=== PATIENT | female | born 1980 | race African-American/Black ===

== ENCOUNTER 2016-10-18 16:58 | Inpatient (IN) | payer OTHER, SELFPAY ==
[~2016-10-18] VITALS: Ht 167.6 cm; Wt 83.0 kg
[2016-10-18] VITALS (25 sets, daily range): BP systolic 87–127; BP diastolic 53–91
[2016-10-18] MEDS ORDERED: PRENTAB9 PO (17:23)
[2016-10-18] MEDS ORDERED: LACTATED RINGER'S 1000 ML IV STA (20:21)
[2016-10-18] MEDS ORDERED: AMPICILLIN SOD 2 GM in D5W MINI-BAG PLUS 100 ML IV STA (20:21)
[2016-10-18] MEDS ORDERED: LR 1,000 ML IV SCH (20:21)
--- NOTE | 2016-10-18 20:44 | HPEPDOC ---
Obstetrical History & Physical General Date of Admission Oct 18, 2016 at 20:19 History of Present Illness Chichi is a 36yo with SIUP at 39w4d by lmp c/w 8wk u/s presenting this evening with painful consistent contractions. She was seen last night for labor check and only 1-2cm. She states her ctx are becoming more painful over the day and closer together. No LOF, some scant vaginal bleeding, feels movement. course only complicated by AMA (age 36), declined genetic screening. Surgical hx significant for umbilical hernia repair with mesh. Chief Complaint: Contractions, term Information Provided By: Patient Care Care: Good Care Dating Final EDC: Oct 21, 2016 Final EDC by: LMP, 1st trimester (US) LMP: Jan 15, 2016 Antepartum Course Diagnos(e)s AMA, declined genetic screening Height (inches): 65 Pre- weight (lbs.): 169 Admission Weight (lbs.): 188 Change in Weight (lbs.): 19 Past Medical History Past Obstetrical History #1: Past Obstetrical History: Multigravida Date of Delivery: Mar 28, 2004 Gestation: 40 Type of Delivery: Spontaneous Vaginal Del. Sex of Infant: Male Complications: No Past Obstetrical History #2: Past Obstetrical History: Multigravida Date of Delivery: Sep 25, 2008 Gestation: 40 Type of Delivery: Spontaneous Vaginal Del. Sex of Infant: Female [employer] History: No pertinent history Past Medical History Medical History benign Surgical History: Hernia repair (umbilical, with mesh, 2013) Family History Significant Family History: No pertinent family hx Social History Marital Status: Family situation: Spouse/partner home Psychosocial History: No pertinent psych hx * Smoker: non-smoker Alcohol: Denies Drugs: denies Imunizations Tdap status: declined Influenza Status: current Allergies Coded Allergies: Acetaminophen (Verified Adverse Reaction, Mild, NAUSEA/VOMITING/HEADACHE, 10/18/16) Oxycodone (Verified Adverse Reaction, Mild, NAUSEA/VOMITING/HEADACHE, 10/18) Medications Scheduled Multivitamins/ ( 27-0.8 mg) 1 Tab Tab 1 TAB PO DAILY Physical Examination Physical Examination GENERAL: Alert and oriented times three. BREAST: . ABDOMEN: Gravid and non-tender to touch. FETUS: Is vertex (VTX) by sterile vaginal examination (SVE) HEART RATE: Regular rate and rhythm. LUNGS: Clear to auscultation (CTA). EXTREMITIES: trace edema of BLE Vital Signs/I&O Vital Signs Date Time Temp Pulse Resp B/P Pulse Ox O2 Delivery O2 Flow Rate FiO2 10/18/16 17:22 98.3 16 10/18/16 17:18 74 127/67 Pertinent Laboratoy Data Blood Type: O+ RBC Antibody Screen: Negative HIV: Negative Hepatitis B: Negative Hepatitis C: Unknown Rapid Plasma Reagin: Nonreactive Rubella: Immune Varicella: Immune Chlamydia/Gonorrhea: Negative Group B Streptococcus: Positive Glucose Tolerance Test: 63 Anatomy Ultrasound Ultrasound Date: Jun 14, 2016 Placenta Location: Posterior Normal Anatomy: Yes Placenta Previa: No Steroid Therapy Steroid Therapy: No Vaginal Examination Dilation: 5 cm Effacement: 60-70% Station: -2 Cervical Consistency: Soft Cervical Position: Middle Presentation: Cephalic presentation Assessment Heart Rate (FHR): 140 Variability: Moderate Accelerations: Positive Decelerations: None Tocometer Contractions: Yes Frequency: every 3-7 min. Duration: greater than 60 seconds Strength: palpated as moderate Assessment/Plan Assessment Chichi is a 36yo with SIUP at 39w4d by lmp c/w 8wk u/s in active labor. Observed for 2hr on L&D and made cervical change from 4/50/-2 to 5/75/-2 with increasingly more regular, painful ctx. Cephalic by SCE. Cat I FHRT. GBS positive (urine). Proven to 7lb. course only complicated by AMA (age 36), declined genetic screening. Surgical hx significant for umbilical hernia repair with mesh. Plan Admit and orient. Child Life Specialist and consent. Diet: clear liquids Group B Streptococcus (GBS) positive: ampicillin 2/1 Labs and intravenous (IV) per unit protocol. Lactated Ringers (LR): Bolus 1000 mL, then at 125 mL/hr. Anticipate normal spontaneous delivery () Dr. Dominique Davidson MD [place]DOMINI[place] Talavera MD Oct 18, 2016 20:44
[2016-10-18] MEDS ORDERED: FENTANYL 2MCG/ML ROPIVACAINE 0.2% NACL 250 ML CADD As Ordered ONE (21:49)
[2016-10-18 21:51] LABS: MEAN CORPUSCULAR HEMOGLOBIN 30.9 pg (27.0-33.0); MEAN CORPUSCULAR HGB CONC 34.3 g/dl (32.0-36.5); MEAN CORPUSCULAR VOLUME 90.1 fl (80.0-96.0); RED CELL DISTRIBUTION WIDTH 11.9 % (11.5-14.5); WHITE BLOOD COUNT 8.8 K/mm3 (4.0-10.0)
[2016-10-18] MEDS ORDERED: LACTATED RINGER'S 1000 ML IV PRN (22:16)
[2016-10-18] MEDS ORDERED: EPIDURAL COMMENT XX SCH (22:16)
[2016-10-18] MEDS ORDERED: diphenhydrAMINE INJ 50MG/ML VIAL (J1200) IV PRN (22:16)
[2016-10-18] MEDS ORDERED: ONDANSETRON 4MG/2ML VIAL (J2405) IV PRN (22:16)
[2016-10-18] MEDS ORDERED: REFRIGERATOR IV KEYS XX PRN (22:16)
[2016-10-18] MEDS ORDERED: FENTANYL/ROPIVACAINE/NACL CADD 250 ML EPIDURAL SCH (22:16)
[2016-10-18] MEDS ORDERED: EPIDURAL/PCA KEYS XX PRN (22:16)
[2016-10-18] MEDS ORDERED: ePHEDrine SULFATE 25 MG/5 ML(5MG/ML) SYRINGE IV PRN (22:16)
[2016-10-18] MEDS ORDERED: NALOXONE INJ 0.4 MG/1 ML VIAL (J2310) IV PRN (22:16)
[2016-10-18] MEDS ORDERED: ePHEDrine SULFATE 25 MG/5 ML(5MG/ML) SYRINGE As Ordered ONE (23:33)
[2016-10-19] VITALS (17 sets, daily range): BP systolic 99–138; BP diastolic 50–89
[2016-10-19] MEDS ORDERED: OXYTOCIN DRIP 30 UNITS in APPROPRIATE DILUENT 1 EA IV SCH ×2
[2016-10-19] MEDS ORDERED: AMPICILLIN SOD 1 GM in D5W MINI-BAG PLUS 50 ML IV SCH (01:00)
--- NOTE | 2016-10-19 02:01 | DNPDOC ---
Delivery Note Delivery Note DATE OF DELIVERY: Oct 19, 2016 at 0138 PREDELIVERY DIAGNOSIS: 39w4d gestation and labor. POST DELIVERY DIAGNOSIS: Delivered. PROCEDURE: Spontaneous vaginal delivery MATE CHIEF: Dr. Dominique Davidson MD ANESTHESIA: epidural. ESTIMATED BLOOD LOSS: 150 mL. FINDINGS: 6 pound 11 ounce male infant, Score 9/10 DELIVERY SUMMARY: Chichi is a 36yo G4 now P3013 who was admitted to L&D for active labor. She had an uncomplicated of a viable male at 0138 on 19 October 2016 at 39w4d. Head delivered OA, restituted ZEENAT. No nuchal cord. Right anterior shoulder delivered followed by posterior shoulder and corpus. Cord clamped x2 and cut by this provider. Infant mouth/nares bulb suctioned. Spontaneous cry noted. Baby placed on mother's abdomen. Apgars 9/10, weight 3024g. Cord blood obtained due to maternal blood type of O pos. With gentle downward guidance and suprapubic pressure, placenta delivered spontaneously and intact with a centrally inserted cord. Fundal massage until both uterine fundus and lower uterine segment firm; fundus at U-2cm. Pitocin 30 units IV bolus administered. Inspection of perineum and vaginal wall revealed right superficial labial abrasion re- approximated with one figure of 8 using 4.0 vicryl suture with good hemostasis. Mom and infant in stable condition. Dr. Dominique Davidson MD [place] T[place] MD Oct 19, 2016 02:01
[2016-10-19] MEDS ORDERED: ACETAMINOPHEN 500 MG TAB PO PRN (02:15)
[2016-10-19] MEDS ORDERED: RHOGAM 300 MCG (1500 IU) INJ (J2790) IM SCH (02:15)
[2016-10-19] MEDS ORDERED: MEASLES,MUMPS,RUBELLA VACCINE INJ (MMR-II) (90707) SC SCH (02:15)
[2016-10-19] MEDS: IBUPROFEN 800 MG TAB PO PRN ×2 (07:34→14:47)
[2016-10-19] MEDS: DOCUSATE SODIUM 100 MG CAP PO SCH ×2 (07:34→20:15)
[2016-10-19] MEDS: PRENATAL VITAMIN TAB PO SCH (07:34)
--- NOTE | 2016-10-19 09:05 | IPNPDOC ---
Text Note Date of Service The patient was seen on 10/19/16. NOTE PPD 0 Chichi is a 36yo doing well on PPD 0 s/p uncomplicated . She is . Lochia normal, spontaneously voiding and ambulating without difficulty. Tolerating regular diet. Denies f/c/n/v/SOB/CP/CAMPBELL/abdominal pain. Vitals wnl, afebrile Exam: General: WDWN, NAD, resting comfortably Cardiac: S1S2 present, no murmur Lungs: CTAB without wheeze/crackles Abdomen: soft, NTTP, fundus firm u-1cm Extremities: no tenderness of calves bilaterally Assessment: Chichi is a 36yo doing well on PPD 0 s/p uncomplicated . Meeting all milestones. No e/o infection, hemodynamically stable. Plan: -routine post- care -tylenol/motrin prn pain -regular diet -encourage , hydration, ambulation -undecided on contraception, considering Mirena IUD -likely discharge home tomorrow Dr. Dominique Davidson MD [place] RODRÍGUEZ VSSera, I+O VSSera I+O Laboratory Tests 10/18/16 21:25 Red Blood Count 4.31, Mean Corpuscular Volume 90.1, Mean Corpuscular Hemoglobin 30.9, Mean Corpuscular Hemoglobin Concent 34.3, Red Cell Distribution Width 11.9 Vital Signs Date Time Temp Pulse Resp B/P Pulse Ox O2 Delivery O2 Flow Rate FiO2 10/19/16 04:00 98.1 75 18 119/73 I&O- Last 24 Hours up to 6 AM 10/19/16 06:00 Output Total 150 ml Balance -150 ml DOMINIQUE DAVIDSON MD Oct 19, 2016 09:05
[2016-10-20] MEDS: IBUPROFEN 800 MG TAB PO PRN (00:53)
[2016-10-20 05:34] VITALS: BP 129/72
--- NOTE | 2016-10-20 07:25 | DSES ---
DATE OF ADMISSION: 10/18/2016 DATE OF DISCHARGE: This lady is a 3, now para 3, admitted in spontaneous labor and had a spontaneous vaginal delivery of a live male , 6 pounds 11 ounces, 3024 grams, Apgars of nine and ten at 1 and 5 minutes respectively. She had a right labial laceration and no other issues were involved. We discussed phlebitis, cystitis, mastitis, endometritis, cellulitis, diet, exercise, pain management, perineal breast and wound care. She is planning on a 6-week visit at which time she would like to have either an intrauterine device (IUD) or a Nexplanon. It will be discussed with her provider at that time. On discharge, her blood pressure is 129/72, respirations 18, pulse 86 and temperature 97.8. Her hemoglobin was 13.3, hematocrit 38.8 and platelets 310. The rest of the physical examination was unremarkable. She was normocephalic, atraumatic. Neck with full range of motion. Pupils equal and reactive to light. Chest is clear bilaterally at bases. No wheezes or rhonchi. Distal pulses symmetric. No evidence of deep vein thrombosis (DVT), pulmonary embolism (PE) or superficial phlebitis. Uterus is two below. Lochia is moderate. Four quadrant bowel sounds. The perineum is healing. No rashes, lesions or pruritus. No arthralgia or myalgia. No complaints of cough, wheezes, shortness of breath or dyspnea on exertion. No chest pain. No bleeding. Neurologic complete. No incontinence, urgency or frequency. No nausea, vomiting, diarrhea or constipation. No diabetic issues. She does not smoke or drink. Does not abuse drugs. She is and there is no domestic violence. In summary, we have a 3, who had a spontaneous uncomplicated vaginal delivery, to be discharged, to followup in six weeks' time.
[2016-10-20] MEDS ORDERED: COLA100C PO (08:05)
[2016-10-20] MEDS ORDERED: IBUP-1114 PO (08:05)
[2016-10-20] MEDS ORDERED: ACET50TA PO (08:05)
[2016-10-20] MEDS: DOCUSATE SODIUM 100 MG CAP PO SCH (08:32)
[2016-10-20] MEDS: PRENATAL VITAMIN TAB PO SCH (08:32)
== END 2016-10-20 11:00 | disposition home or self-care (01) | DRG 775 ==
LOC: M LDO 16:58 → M LDI 20:19 → M OBS 10-19 04:10
PROVIDERS: ADMIT Obstetrics & Gynecology; ATTEND Obstetrics & Gynecology
PROC: 10E0XZZ Delivery of Products of Conception, External Approach (ICD-10-PCS; principal; 2016-10-19)
PROC: 0HQ9XZZ Repair Perineum Skin, External Approach (ICD-10-PCS; 2016-10-19)
DX: O99.824 Streptococcus B carrier state complicating childbirth (principal); Z37.0 Single live birth; Z3A.39 39 weeks gestation of pregnancy; Z88.6 Allergy status to analgesic agent; Z88.5 Allergy status to narcotic agent; Z79.899 Other long term (current) drug therapy; O70.0 First degree perineal laceration during delivery

== ENCOUNTER 2018-10-20 19:52 | Inpatient (IN) | payer OTHER ==
[2018-10-20] VITALS (7 sets, daily range): BP systolic 118–143; BP diastolic 60–88
[~2018-10-20] VITALS: Ht 167.6 cm; Wt 82.9 kg
[~2018-10-20 19:52] MED LIST: COLA100C5 PO; IBUP-1114 PO; MAPA500T2 PO; PRENTAB9 PO
[2018-10-20] MEDS ORDERED: LR 1,000 ML IV SCH (20:25)
[2018-10-20] MEDS ORDERED: PENICILLIN G POTASSIUM IV 5 MU in D5W MINI-BAG PLUS 100 ML IV STA (20:25)
[2018-10-20] MEDS ORDERED: LACTATED RINGER'S 1000 ML IV ONE (20:30)
[2018-10-20] MEDS ORDERED: FENTANYL 2MCG/ML ROPIVACAINE 0.2% IN 0.9% NACL 100ML IVBAG As Ordered ONE (21:04)
[2018-10-20 21:10] LABS: HEMATOCRIT 36.6 % (36.0-47.0); HEMOGLOBIN 12.6 g/dl (12.0-15.5); MEAN CORPUSCULAR HGB CONC 34.4 g/dl (32.0-36.5); MEAN CORPUSCULAR VOLUME 90.1 fl (80.0-96.0); PLATELET COUNT, AUTOMATED 303 10^3/uL (150-450); RED BLOOD COUNT 4.06 10^6/uL (4.00-5.40); WHITE BLOOD COUNT 7.3 10^3/uL (4.0-10.0)
[2018-10-20] MEDS ORDERED: OXYTOCIN 30 UNITS IN 0.9% NaCl 500ML IV BAG (J2590) As Ordered ONE (21:28)
[2018-10-20] MEDS ORDERED: OXYTOCIN DRIP 30 UNITS in APPROPRIATE DILUENT 1 EA IV SCH (21:47)
[2018-10-20] MEDS: IBUPROFEN 800 MG TAB PO PRN (21:57)
[2018-10-20] MEDS ORDERED: RHOGAM 300 MCG (1500 IU) INJ (J2790) IM SCH (22:00)
[2018-10-20] MEDS ORDERED: METHYLERGONOVINE MALEATE 0.2 MG TAB PO PRN (22:00)
[2018-10-20] MEDS ORDERED: ANUSOL HC CREAM 30GM TOP PRN (22:00)
[2018-10-20] MEDS ORDERED: OXYTOCIN INJ 10 UNITS/ML VIAL (J2590) IV ONE (22:00)
[2018-10-20] MEDS ORDERED: MEASLES,MUMPS,RUBELLA VACCINE INJ (MMR-II) (90707) SC SCH (22:00)
[2018-10-20] MEDS ORDERED: DIBUCAINE 1% OINTMENT 30GM TOP PRN (22:00)
[2018-10-20] MEDS ORDERED: DOCUSATE SODIUM 100 MG CAP PO PRN (22:00)
[2018-10-20 22:13] LABS: CORD GAS ABE A 0.1; CORD GAS O2 SAT A 20.8 %; CORD GAS PCO2 A 46.5 mmHg; CORD GAS PH A 7.365 UNITS; CORD GAS PO2 A 13.3 mmHg; CORD GAS SBC A 22.7 MEQ/L; CORD GAS TCO2 A 27.4 MEQ/L
[2018-10-20 22:14] LABS: CORD GAS ABE V 0.7; CORD GAS O2 SAT V 78.3 %; CORD GAS PCO2 V 30.9 mmHg; CORD GAS PH V 7.49 UNITS; CORD GAS PO2 V 32.4 mmHg; CORD GAS SBC V 24.6 MEQ/L
[2018-10-20] MEDS ORDERED: BIOT10009 PO (23:26)
[2018-10-21] MEDS: ACETAMINOPHEN 500 MG TAB PO PRN ×3 (00:40→20:28)
[2018-10-21 00:51] VITALS: BP 108/60
[2018-10-21] MEDS ORDERED: PENICILLIN G POTASSIUM IV 2.5 MU in APPROPRIATE DILUENT 1 EA IV SCH (01:00)
[2018-10-21 06:06] VITALS: BP 104/51
[2018-10-21] MEDS: IBUPROFEN 800 MG TAB PO PRN ×2 (06:54→16:29)
[2018-10-21 07:31] LABS: HEMATOCRIT 37.7 % (36.0-47.0); HEMOGLOBIN 12.6 g/dl (12.0-15.5); MEAN CORPUSCULAR HEMOGLOBIN 30.4 pg (27.0-33.0); MEAN CORPUSCULAR HGB CONC 33.4 g/dl (32.0-36.5); MEAN CORPUSCULAR VOLUME 91.1 fl (80.0-96.0); PLATELET COUNT, AUTOMATED 316 10^3/uL (150-450); RED BLOOD COUNT 4.14 10^6/uL (4.00-5.40); WHITE BLOOD COUNT 10.9 10^3/uL (4.0-10.0)
--- NOTE | 2018-10-21 08:57 | HPE ---
DATE OF ADMISSION: 10/20/2018 38-year-old 5, para 3, aborta 1, last menstrual period (LMP) of 01/15/2018, estimated date of confinement (EDC) 10/22/2018, at 39 and 5 of gestation, active labor, 5 cm, posterior, 100% effaced, -3 station, intact. Group B Streptococcus (GBS) positive. PAST HISTORY: 2003 at 40 weeks spontaneous delivery of a male 7 pounds, epidural. 2006 spontaneous . 2008 term spontaneous vaginal delivery female, 6 pounds. 2016 at 40 weeks male, 6 pounds, epidural. Risk factor is she is AMA, 38 years old, GBS positive, has a hernia. LABORATORY DATA: O positive. HIV negative. Hep negative. RPR negative. Rubella immune. Varicella immune. Pap normal. Urine negative. Gonorrhea and chlamydia negative. 1 hour glucose 78. GBS positive. EXAMINATION: She is distressed. Symphysis fundus height is 40, vertex, four quadrant bowel sounds, OP position, posterior 5 cm, 100% effaced, -3 station. No vaginal bleeding or discharge. Blood pressure 110/67, respirations 18, pulse 99, temperature 96.8. The rest of the examination is unremarkable. She is normocephalic, atraumatic. Neck full range of motion. Pupils equal and reactive to light. Distal pulses symmetric. No evidence of deep vein thrombosis (DVT), pulmonary embolism (PE), or superficial phlebitis. No wheezes or rhonchi. No CVA tenderness. Abdomen: Soft. Four quadrant bowel sounds, appropriate symphysis fundus height. She has no rashes, lesions or pruritus. She has a lot of tattoos. No arthralgia or myalgia. No complaint joint pain. No complaint cough, wheeze, shortness of breath or dyspnea on exertion. No infection. No bleeding. Neuro complete. No incontinency, urgency or frequency. No nausea, vomiting, diarrhea or constipation. No diabetic issues. She has no CLAIMS ATTORNEY history. PAST MEDICAL AND SURGICAL HISTORY: Unremarkable. FAMILY HISTORY: Noncontributory. She does not smoke, drink or abuse drugs. She is to a soldier. No domestic violence. Good support system. We discussed the patient's pain management. She is requesting an epidural. We also explained that GBS positive requires 4 hours of antibiotics predelivery in order for the baby to be not admitted to the intensive-care unit (NICU) for observation. Consent for vaginal delivery is obtained, that is delivery through the vagina, possible assistance of forceps or vacuum devices if needed for maternal and indications. Forceps or vacuum devices assist with vaginal delivery when normal pushing efforts cannot achieve delivery on their own or when delivery is needed in an emergency for baby's well-being. Medications may be required to induce or augment labor to help in order to achieve a vaginal delivery. Episiotomy may be required to help the baby deliver vaginally. You may also require repair of lacerations, tears of her vagina, vulva caused by delivery, in some cases emergencies can occur, requiring emergency section, delivery so quickly there may not be time for formalized consent form, but the provider will discuss the reasons, understand it occurs only if the baby is safer delivered abdominally than vaginally, and in some situations section may be more appropriate route of delivery. Remote reactions to anesthesia, remote rupture, remote hysterectomy for life-threatening issues. Blood transfusions. Possibility of hemorrhage of rapid delivery. The risks to use of forceps or vacuum, there is hematoma, scratches to baby head, intracranial bleed, trauma to urinary tract or bowel. The patient expressed understanding, still requesting her epidural, ongoing process, hydration, epidural and monitor baby for anticipated vaginal delivery.
[2018-10-21] MEDS ORDERED: ADACEL/BOOSTRIX VACCINE (DIPHTH/PERTUSS/ACELL/TETANUS)0.5ML SYR (90715) IM ONE (09:00)
[2018-10-21] MEDS: PRENATAL VITAMINS CHEWABLE TABLET PO SCH (09:56)
--- NOTE | 2018-10-21 14:02 | DN ---
DATE OF DELIVERY: 10/20/2018 DELIVERY NOTE: 38-year-old, 5, para 3, admitted in active labor, 5 cm dilated, GBS positive. She has a spontaneous rupture of membranes of clear liquid, had involuntary pushing, spontaneously and precipitously delivered a live male infant weighing 3050 grams or 6 pounds 12 ounces. Apgars 9 and 9 at one and five minutes respectively. There was a cord around the neck times one which was tight. The placenta delivered spontaneously thereafter. Three-vessel cord, membranes and tissues intact. She had a small first-degree tear which oversewn in the usual fashion with a J3350 on [address] CT needle. Sphincter was intact. Lateral, anterior and posterior brennan were intact. Uterus contracted well down on Pitocin. The patient and baby tolerated the procedure well.
[2018-10-21 18:00] VITALS: BP 109/54
[2018-10-22] MEDS: IBUPROFEN 800 MG TAB PO PRN ×2 (00:39→18:28)
[2018-10-22] MEDS ORDERED: ISOVUE-370 76% 125ML VIAL (Q9967 PER ML) As Ordered ONE (01:32)
[2018-10-22 02:17] LABS: ALBUMIN 2.7 GM/DL (3.2-5.2); ALT/SGPT 20 U/L (12-78); BILIRUBIN,TOTAL 0.2 MG/DL (0.2-1.0); BLOOD UREA NITROGEN 15 MG/DL (7-18); CALCIUM LEVEL 8.5 MG/DL (8.5-10.1); CARBON DIOXIDE LEVEL 25 MEQ/L (21-32); CHLORIDE LEVEL 107 MEQ/L (98-107); CREATININE FOR GFR 1.17 MG/DL (0.55-1.30); GLOMERULAR FILTRATION RATE > 60.0 (>60); GLUCOSE, FASTING 85 MG/DL (70-100); POTASSIUM SERUM 4.1 MEQ/L (3.5-5.1); SODIUM LEVEL 140 MEQ/L (136-145); TOTAL PROTEIN 6.6 GM/DL (6.4-8.2)
--- NOTE | 2018-10-22 04:29 | REPVR ---
EXAM: CT Abdomen and Pelvis With Contrast EXAM DATE/TIME: 10/22/2018 1:20 AM CLINICAL HISTORY: 38 years old, female; Pain; Abdominal pain; Generalized; Additional info: 38yo f ppd2 S/P , HX of abd hernia, severe pain TECHNIQUE: Imaging protocol: Axial computed tomography images of the abdomen and pelvis with intravenous contrast. Coronal and sagittal reformatted images were created and reviewed. Radiation optimization: All CT scans at this facility use at least one of these dose optimization techniques: automated exposure control; mA and/or kV adjustment per patient size (includes targeted exams where dose is matched to clinical indication); or iterative reconstruction. Contrast material: iso Contrast volume: 100 ml Contrast route: ac COMPARISON: No relevant prior studies available. FINDINGS: Lower thorax: There is minimal bibasilar atelectasis. ABDOMEN: Liver: There are no focal liver lesions present. Gallbladder and bile ducts: The gallbladder is normal with no stones or biliary ductal dilation. Pancreas: The pancreas is normal with no ductal dilation. Spleen: The spleen is normal. Adrenals: The adrenal glands are normal. Kidneys and ureters: There is a 3 mm calcification in the right kidney midpole which may be a nonobstructing stone or small parenchymal calcification. The kidneys appear heterogeneous but this is probably related to the relatively early phase of the contrast. There is no hydronephrosis. The nondilated distal ureters are difficult to trace, but no stones are seen along their expected course. Stomach and bowel: There is mild gaseous distention of the colon but there is no sign of obstruction.The small bowel appears unremarkable. Appendix: A normal appendix is identified. PELVIS: Bladder: The bladder is unremarkable. No stones identified. Reproductive: Uterus is large measuring 21.2 x 11.4 x 14.2 cm. There is low attenuation centrally measuring 1.6 cm in thickness, consistent with fluid in the endometrial canal. ABDOMEN and PELVIS: Intraperitoneal space: There is only a trace of free fluid in the pelvis. There is no free intraperitoneal air. Bones/joints: No suspicious osseous lesions. No acute fractures or dislocations. Soft tissues: There is laxity of anterior abdominal wall but no true hernia is identified. Vasculature: Normal. No abdominal aortic aneurysm. Lymph nodes: Normal. No enlarged lymph nodes. IMPRESSION: 1. The uterus is enlarged to 21 x 11 x 14 cm, related to the state, with low-attenuation centrally, consistent with fluid in the endometrial canal. No definite hematoma identified. If there is clinical concern for retained products of conception or endometritis, sonographic evaluation may be helpful. 2. Heterogeneous appearance of the kidneys, probably related to the phase of the IV contrast, but correlate clinically for any signs of pyelonephritis. No hydronephrosis. Electronically signed by: Nellie Barbosa On 10/22/2018 04:29:13 AM
[2018-10-22 06:00] VITALS: BP 131/67
[2018-10-22] MEDS: MIRALAX *UNIT DOSE* 17GM PACKET PO SCH (06:41)
--- NOTE | 2018-10-22 08:30 | IPNPDOC ---
Progress Note Date of Service: Oct 22, 2018 Day#: 1 Progress Note PPD 1 SUBJECT: Chichi is a 38yo [id number] s/p uncomplicated at 39w5d on 10/21/18, overall doing well day # 1. Significantly, in the middle of the night I was called by the RN for patient stating she has a known abdominal hernia that she will be getting surgery for eventually (previously evaluated by gen surg), and normally "she can reduce a bulge, but right now she has severe pain and cannot reduce a bulge". I was told the patient was in immense amount of pain and needed immediate evaluation. I went to see Chichi and performed abdominal exam- I could not feel a fascial defect, but the patient had immense guarding and was tearful with my touch. She pointed to the focus of pain being in the RLQ, though she stated the prior noted hernia was next to her umbilicus- though she previously had an umbilical hernia that was repaired with mesh. The story was confusing, especially with the patient's location of pain- but given that exam brought her to tears in the midst of her stated history- I made the decision to have her sent for stat CT abd/pelvis which resulted "laxity in the abdominal wall but NO evidence of any hernia." When I went to inform the patient of the CT result, she noted her pain had improved. Only other finding on the CT was a 3mm right kidney stone, but this would not have caused the pain she was describing (especially with abd tenderness on exam). I explained all of this to the patient and provided her with a copy of the report that she can take to her general surgeon when she discusses hernia repair in the future. My best explanation for her pain was that it may be related to gas. She has been ambulating, voiding spontaneously without issue and tolerating regular diet. Breast and bottle feeding without issue. Reports lochia is like a normal period. No f/c/n/v/CP/SOB. OBJECTIVE: VITAL SIGNS: Within normal limits, afebrile. Alert and oriented times three. Abdomen: Fundus firm at U-2. Soft, no rebound, some guarding with tenderness in RLQ but otherwise benign Radiology: CT abd/pelvis 10/22: FINDINGS: Lower thorax: There is minimal bibasilar atelectasis. ABDOMEN: Liver: There are no focal liver lesions present. Gallbladder and bile ducts: The gallbladder is normal with no stones or biliary ductal dilation. Pancreas: The pancreas is normal with no ductal dilation. Spleen: The spleen is normal. Adrenals: The adrenal glands are normal. Kidneys and ureters: There is a 3 mm calcification in the right kidney midpole which may be a nonobstructing stone or small parenchymal calcification. The kidneys appear heterogeneous but this is probably related to the relatively early phase of the contrast. There is no hydronephrosis. The nondilated distal ureters are difficult to trace, but no stones are seen along their expected course. Stomach and bowel: There is mild gaseous distention of the colon but there is no sign of obstruction.The small bowel appears unremarkable. Appendix: A normal appendix is identified. PELVIS: Bladder: The bladder is unremarkable. No stones identified. Reproductive: Uterus is large measuring 21.2 x 11.4 x 14.2 cm. There is low attenuation centrally measuring 1.6 cm in thickness, consistent with fluid in the endometrial canal. ABDOMEN and PELVIS: Intraperitoneal space: There is only a trace of free fluid in the pelvis. There is no free intraperitoneal air. Bones/joints: No suspicious osseous lesions. No acute fractures or dislocations. Soft tissues: There is laxity of anterior abdominal wall but no true hernia is identified. Vasculature: Normal. No abdominal aortic aneurysm. Lymph nodes: Normal. No enlarged lymph nodes. IMPRESSION: 1. The uterus is enlarged to 21 x 11 x 14 cm, related to the state, with low-attenuation centrally, consistent with fluid in the endometrial canal. No definite hematoma identified. If there is clinical concern for retained products of conception or endometritis, sonographic evaluation may be helpful. 2. Heterogeneous appearance of the kidneys, probably related to the phase of the IV contrast, but correlate clinically for any signs of pyelonephritis. No hydronephrosis. ASSESSMENT: Chichi is a 38yo [id number] s/p uncomplicated at 39w5d on 10/21/18, overall doing well day # 1. Severe pain in the middle of the night with negative CT scan, possibly related to gas pains(?). Vitals within normal limits, afebrile, hemodynamically stable with no evidence of infection. PLAN: 1. Discussed possibility of discharge today vs keeping her one more day given her pain last night. She is undecided, but will re-evaluate later today. I discussed this with Dr. Sessions 2. Tylenol and Motrin for pain. 3. Encourage breast feeding and ambulation. 4. I provided her with home meds from [facility] stock: tylenol/motrin/colace/dibucaine Dr. Alanis Gonzalez MD VS, I&O, 24H, Fishbone Vital Signs/I&O Vital Signs Date Time Temp Pulse Resp B/P (MAP) Pulse Ox O2 Delivery O2 Flow Rate FiO2 10/22/18 06:00 98.7 76 18 131/67 (88) Laboratory Data 24H LABS Laboratory Tests 2 10/22/18 01:42: Anion Gap 8, Glomerular Filtration Rate > 60.0, Blood Urea Nitrogen 15, Cre atinine 1.17, Sodium Level 140, Potassium Level 4.1, Chloride Level 107, Carbon Dioxide Level 25, Calcium Level 8.5, Aspartate Amino Transf (AST/SGOT) 31, Alanine Aminotransferase (ALT/SGPT) 20, Alkaline Phosphatase 123H, Total Bilirubin 0.2, Total Protein 6.6, Albumin 2.7L, Albumin/Globulin Ratio 0.69L CBC/BMP Laboratory Tests 10/22/18 01:42 Calcium Level 8.5, Aspartate Amino Transf (AST/SGOT) 31, Alanine Aminotransferase (ALT/SGPT) 20, Alkaline Phosphatase 123 H, Total Bilirubin 0.2, Total Protein 6.6, Albumin 2.7 L Alanis Gonzalez MD Oct 22, 2018 08:30
[2018-10-22] MEDS: PRENATAL VITAMINS CHEWABLE TABLET PO SCH (10:00)
[2018-10-22] MEDS: ACETAMINOPHEN 500 MG TAB PO PRN (13:02)
[2018-10-22 18:00] VITALS: BP 119/57
[2018-10-23] MEDS: ACETAMINOPHEN 500 MG TAB PO PRN (05:19)
[2018-10-23 06:00] VITALS: BP 124/68
[2018-10-23] MEDS: MIRALAX *UNIT DOSE* 17GM PACKET PO SCH (07:53)
[2018-10-23] MEDS: PRENATAL VITAMINS CHEWABLE TABLET PO SCH (07:54)
[2018-10-23] MEDS: IBUPROFEN 800 MG TAB PO PRN (12:04)
--- NOTE | 2018-10-23 12:39 | DS.PDOC ---
Discharge Summary General Date of Admission Oct 20, 2018 at 20:23 Date of Discharge 23oct2018 Discharge Summary ADMITTING DIAGNOSES: Active labor DISCHARGE DIAGNOSES: Same, HOSPITAL COURSE: Admitted and delivery uncomplicated, . course uncomplicated. DISCHARGE MEDICATIONS: Motrin, Lanolin DISCHARGE INSTRUCTIONS: Nothing in the vagina for 6 weeks. F/U in OBGYN clinic in 6-8 weeks. Sessions Vital Signs/I&Os Vital Signs Date Time Temp Pulse Resp B/P (MAP) Pulse Ox O2 Delivery O2 Flow Rate FiO2 10/23/18 06:00 97.1 76 18 124/68 (86) Discharge Medications Scheduled Biotin (Vitamin H) (Biotin Gummies) 1,000 Mcg Chw, 2 TAB PO DAILY, (Reported) Multivitamins/ ( 27-0.8 mg) 1 Tab Tab, 1 TAB PO DAILY, (Reported) Allergies Coded Allergies: oxycodone (Verified Adverse Reaction, Mild, nausea/vomiting/headache, 10/21/18) SESSIONSROWENA MD Oct 23, 2018 12:39
--- NOTE | 2018-10-23 12:41 | IPNPDOC ---
Text Note Date of Service The patient was seen on 10/23/18. NOTE PPD2 States feeling well, pain controlled with prescribed meds. Baby bonding and feeding well. No heavy VB. Lochia slowing. Ambulatory. Tolerating PO without issues. Voiding spont. No CP/LP/SOB. Pain from yest completely resolved VSSAF NAD A&O LE no C/C/E Ut at U-2, firm No abd wall pt tenderness a/p: Doing well. D/C today. F/U with Gen Surg for hernia. Sessions VS,Sera, I+O VSSera, I+O Vital Signs Date Time Temp Pulse Resp B/P (MAP) Pulse Ox O2 Delivery O2 Flow Rate FiO2 10/23/18 06:00 97.1 76 18 124/68 (86) SESSIONS,ROWENA Layne MD Oct 23, 2018 12:41
[2018-10-23] MEDS ORDERED: COLA100C5 PO (12:42)
[2018-10-23] MEDS ORDERED: IBUP-1114 PO (12:42)
[2018-10-23] MEDS ORDERED: MAPA500T2 PO (12:42)
== END 2018-10-23 13:30 | disposition home or self-care (01) | DRG 807 ==
LOC: M LDO 19:52 → M LDI 20:23 → M OBS 10-21 00:49
PROVIDERS: ADMIT Obstetrics & Gynecology; ATTEND Obstetrics & Gynecology
PROC: 10E0XZZ Delivery of Products of Conception, External Approach (ICD-10-PCS; principal; 2018-10-20)
PROC: 0HQ9XZZ Repair Perineum Skin, External Approach (ICD-10-PCS; 2018-10-20)
DX: O99.824 Streptococcus B carrier state complicating childbirth (principal); Z37.0 Single live birth; Z3A.39 39 weeks gestation of pregnancy; O62.3 Precipitate labor; R14.0 Abdominal distension (gaseous); O99.89 Other specified diseases and conditions complicating pregnancy, childbirth and the puerperium; O69.1XX0 Labor and delivery complicated by cord around neck, with compression, not applicable or unspecified; O70.0 First degree perineal laceration during delivery